=== PATIENT | female | born 1955 | race Caucasian/White ===

== ENCOUNTER 2019-03-15 05:40 | Day surgery (SDC) | payer OTHER ==
[2019-03-13 16:49] VITALS: BMI 24.0
[~2019-03-15 05:40] MED LIST: LIDOCAINE HCL 2% (50ML VIAL) INF ONE
[2019-03-15] MEDS ORDERED: LIDOCAINE HCL 2% (20ML MULTI-DOSE VIAL) ONE (07:19)
[2019-03-15] MEDS ORDERED: PROPOFOL 20 ML ONE ×2 (08:01→08:02)
[2019-03-15] MEDS ORDERED: LIDOCAINE HCL 2% (50ML VIAL) INF ONE (08:15)
[2019-03-15] MEDS ORDERED: EPHEDRINE SULFATE/0.9% NACL/PF 50 MG/10 ML SYRINGE NR ONE (08:39)
[2019-03-15] MEDS ORDERED: ONDANSETRON 4 MG/2 ML VIAL IVPUSH PRN (08:56)
[2019-03-15] MEDS ORDERED: ACETAMINOPHEN 325 MG TABLET (FP) PO PRN (08:56)
[2019-03-15] MEDS ORDERED: LACTATED RINGERS SOLUTION 1,000 ML IV SCH (09:00)
[2019-03-15 09:06] VITALS: TEMP 97.5
[2019-03-15 09:55] VITALS: BP 123/70; PULSE 69
--- NOTE | 2019-03-17 11:49 | OP ---
DATE OF OPERATION: DATE OF DICTATION: 03/17/2019 PREOPERATIVE DIAGNOSES: 1. Right carpal tunnel syndrome. 2. Right thumb trigger finger. POSTOPERATIVE DIAGNOSES: 1. Right carpal tunnel syndrome. 2. Right thumb trigger finger. OPERATIVE PROCEDURES: 1. Right carpal tunnel release. 2. Right thumb trigger finger release. SURGEON: Tobias Collado MD ANESTHESIA: Local with sedation. COMPLICATIONS: None. ESTIMATED BLOOD LOSS: Minimal. INDICATIONS FOR PROCEDURE: The patient is a 64-year-old female with above findings indicated for operative treatment. Risks, benefits, and alternatives were discussed with the patient at length. Proper informed consent was obtained. DESCRIPTION OF PROCEDURE: After proper identification of patient and correct operative site, patient was brought to the operating room and placed supine on the table, prominences well padded. Sedation and local anesthesia were given. Right upper extremity was prepped and draped in a sterile fashion. A well-padded tourniquet was placed with a sterile prep. Esmarch bandage used to exsanguinate the right upper extremity. Tourniquet was inflated to 250 mmHg. A longitudinal incision was made at the proximal aspect of the palm. Incision was taken sharply through the skin with blunt and sharp dissection through the subcutaneous tissues. Palmar fascia was divided longitudinally. Transverse carpal ligament was divided longitudinally along with the distal 4 cm of the antebrachial fascia under direct visualization with loupe magnification. This provided complete release of the median nerve at the wrist. Wound was repaired with 5-0 fast-absorbing plain gut suture. A 2nd transverse incision was made over the thumb A1 carlyle. Incision was taken sharply through the skin with blunt and sharp dissection of subcutaneous tissue. Neurovascular structures were carefully retracted. A1 carlyle was identified and divided. Patient was asked to flex and extend her thumb, and no further triggering occurred. Wound was repaired with 5-0 fast-absorbing plain gut sutures. Sterile dressings were applied. The patient was brought to recovery room in stable condition. She tolerated procedure well. TOBIAS COLLADO M.D. [id number]
== END 2019-03-15 09:57 | disposition home or self-care (01) ==
LOC: FASU 05:40
PROVIDERS: ATTEND Orthopaedic Surgery Hand Surgery
PROC: 0LN70ZZ Release Right Hand Tendon, Open Approach (ICD-10-PCS; 2019-03-15)
PROC: 01N50ZZ Release Median Nerve, Open Approach (ICD-10-PCS; principal; 2019-03-15 08:00)
DX: G56.01 Carpal tunnel syndrome, right upper limb (principal); M65.311 Trigger thumb, right thumb